=== PATIENT | female | born 1990 | race American Indian/Alaskan Native ===

== ENCOUNTER 2017-05-25 17:00 | Emergency (ER) | payer OTHER ==
[2017-05-25 17:33] VITALS: BP 100/73
--- NOTE | 2017-05-25 19:45 | Emergency Department Report ---
ED General Adult HPI - General Chief complaint: Allergic Reaction Stated complaint: POSSIBLE ALLERGIC REACTION Time Seen by Provider: 05/25/17 19:42 Source: patient Mode of arrival: Ambulatory Limitations: No Limitations - History of Present Illness Initial comments: 26-year-old female past medical history diabetes type 2 on insulin Levemir presents with complaint of sensation of tingling on skin for 2 days with pins and needle sensation. Patient states that she also noticed that she has slight rash on her face. Denies any chest pain palpitations shortness of breath or abdominal pain. Patient states that she was released from [facility] on Monday of this week after being treated for DKA and hyperglycemia. Patient states she is supposed to be taking 28 units of daily at bedtime Levemir and Humalog 8 units with meals. States that she has had uncontrolled blood sugars since Monday. Onset/Timin -: days(s) Location: head Quality: other (tingling sensation) Consistency: constant Improves with: none Worsens with: none Associated Symptoms: other (tinglign on face, slight maculopapular rash onf martine) - Related Data Previous Rx's Medication Instructions Recorded Last Taken Type Famotidine [Pepcid] 20 mg PO BID #6 tablet 05/25/17 Unknown Rx diphenhydrAMINE [Benadryl CAP] 50 mg PO Q6H #12 capsule 05/25/17 Unknown Rx Allergies Allergy/AdvReac Type Severity Reaction Status Date / Time No Known Allergies Allergy Verified 05/25/17 20:38 ED Review of Systems ROS: Stated complaint: POSSIBLE ALLERGIC REACTION Other details as noted in HPI Constitutional: denies: chills, fever Eyes: denies: eye pain, eye discharge, vision change ENT: denies: ear pain, throat pain Respiratory: denies: cough, shortness of breath, wheezing Cardiovascular: denies: chest pain, palpitations Endocrine: no symptoms reported Gastrointestinal: denies: abdominal pain, nausea, diarrhea Genitourinary: denies: urgency, dysuria, discharge Musculoskeletal: denies: back pain, joint swelling, arthralgia Skin: rash (slight facial maculopapular rash). denies: lesions Neurological: paresthesias. denies: headache, weakness Psychiatric: denies: anxiety, depression Hematological/Lymphatic: denies: easy bleeding, easy bruising ED Past Medical Hx - Surgical History Additional Surgical History: c- section x3, tubal ligation - Social History Smoking Status: Never Smoker Substance Use Type: None, Prescribed - Medications Home Medications: Home Medications Medication Instructions Recorded Confirmed Last Taken Type Famotidine [Pepcid] 20 mg PO BID #6 tablet 05/25/17 Unknown Rx diphenhydrAMINE [Benadryl CAP] 50 mg PO Q6H #12 capsule 05/25/17 Unknown Rx ED Physical Exam - General Limitations: No Limitations General appearance: alert, in no apparent distress - Head Head exam: Present: atraumatic, normocephalic - Eye Eye exam: Present: normal appearance, PERRL, EOMI - ENT ENT exam: Present: mucous membranes moist - Neck Neck exam: Present: normal inspection, full ROM - Respiratory Respiratory exam: Present: normal lung sounds bilaterally. Absent: respiratory distress - Cardiovascular Cardiovascular Exam: Present: regular rate, normal rhythm. Absent: systolic murmur, diastolic murmur, rubs, gallop - GI/Abdominal GI/Abdominal exam: Present: soft, normal bowel sounds - Extremities Exam Extremities exam: Present: normal inspection - Back Exam Back exam: Present: normal inspection - Neurological Exam Neurological exam: Present: alert, oriented X3, CN II-XII intact, normal gait - Psychiatric Psychiatric exam: Present: normal affect, normal mood - Skin Skin exam: Present: warm, dry, intact, normal color. Absent: rash - Expanded Skin Exam Expanded Distribution of rash: face Description of rash: Present: macular ED Course Vital Signs 05/25/17 05/25/17 17:17 20:55 Temperature 98.5 F Pulse Rate 86 Respiratory 18 16 Rate Blood Pressure 100/73 O2 Sat by Pulse 100 100 Oximetry ED Medical Decision Making - Lab Data Result diagrams: 05/25/17 19:50 05/25/17 21:00 - Medical Decision Making A/P: Hyperglycemia, hypernatremia 1- discussed case with who also examined the pt 2- pts labs came back significantly abnormal, NA 172, AG 71 3-I immediately informed the pt of my concern, I discussed case with Dr. lucio and group director Rufina, pt uptriaged 4- repeat BMP to verify intial result, pt uptriaged to main ED for attending level of care, I calculated rate of d5w repletion based on formula as per [email or web address] rec's on hypernatremia [id number] 5- UPDATE: as per lab, repeat Na 130s, Dr. Lucio informed me of update and stated he continue to manage pts care and or DC. Critical care attestation.: If time is entered above; I have spent that time in minutes in the direct care of this critically ill patient, excluding procedure time. ED Disposition Clinical Impression: Allergic reaction Qualifiers: Encounter type: initial encounter Qualified Code(s): T78.40XA - Allergy, unspecified, initial encounter Disposition: DC-01 TO HOME OR SELFCARE Is pt being admited?: No Does the pt Need Aspirin: No Condition: Stable Instructions: Allergies (ED) Additional Instructions: Return to the emergency department immediately should you develop worsening symptoms, fever, inability to tolerate food or liquid or any other concerns. Prescriptions: diphenhydrAMINE [Benadryl CAP] 50 mg PO Q6H #12 capsule Famotidine [Pepcid] 20 mg PO BID #6 tablet Referrals: KAYLA BELLO MD [Staff Physician] - [facility] PRIMARY CAREMD [Primary Care Provider] - 3-5 Days
[2017-05-25 20:09] LABS: Basophils % (Auto) 1.4 % (0.0-1.8); Eosinophils % (Auto) 2.3 % (0.0-4.3); Hematocrit 44.1 % (30.3-42.9); Hemoglobin 14.6 gm/dl (10.1-14.3); Mean Corpuscular HGB Conc 33 % (30-34); Mean Corpuscular Hemoglobin 31 pg (28-32); Mean Corpuscular Volume 93 fl (79-97); Platelet Count 162 K/mm3 (140-440); Red Blood Count 4.76 M/mm3 (3.65-5.03); Red Cell Distribution Width 17.5 % (13.2-15.2); White Blood Count 4.9 K/mm3 (4.5-11.0)
[2017-05-25 20:30] LABS: Anion Gap 71 mmol/L; Blood Urea Nitrogen 12 mg/dL (7-17); Calcium 8.9 mg/dL (8.4-10.2); Carbon Dioxide 28 mmol/L (22-30); Chloride 77.4 mmol/L (98-107); Glucose 224 mg/dL (65-100); Potassium 4.6 mmol/L (3.6-5.0)
[2017-05-25 20:35] LABS: Sodium 172 mmol/L (137-145)
[2017-05-25 20:42] LABS: Bacteria,Urine 2+ /HPF (Negative); Bilirubin,Urine NEG (Negative); Blood,Urine NEG (Negative); Ketones,Urine 20 mg/dL (Negative); Leukocyte Esterase,Urine TR (Negative); Mucus,Urine 1+ /HPF; Nitrite,Urine NEG (Negative); Urobilinogen,Urine < 2.0 mg/dL (<2.0)
[2017-05-25] MEDS ORDERED: D5W 1,000 ML IV ONE (20:58)
[2017-05-25] MEDS ORDERED: D5W 1,000 ML IV SCH (21:00)
[2017-05-25] MEDS ORDERED: BENADRYL IV ONE (21:04)
[2017-05-25] MEDS ORDERED: PEPCID IV ONE (21:04)
--- NOTE | 2017-05-25 21:11 | Emergency Department Report ---
HPI - General Chief Complaint: Allergic Reaction Time Seen by Provider: 05/25/17 19:42 - HPI HPI: Room 2 The patient is 26-year-old female presented with a chief complaint of facial itching. The patient states 5 days ago she was admitted at [facility] and diagnosed with diabetes when she was found to be in DKA. Patient was initiated on Levemir/Humalog. The patient states for the past 3 days his skin has been tingling all over and yesterday she developed facial itching associated believes she was allergic to her insulin. Patient denies nausea vomiting or diarrhea. Patient denies any history of fever. Patient has had the normal amount of po intake. Patient admits to frequent urination but it was attributed to hyperglycemia/DKA Location: [see above] Duration: [see above] Quality: Tingling, pruritus Severity: Moderate Modifying factors: [see above] Context: [see above] Mode of transportation: [not driving] ED Past Medical Hx - Past Medical History Hx Diabetes: Yes - Surgical History Additional Surgical History: c- section x3, tubal ligation - Family History Family history: no significant - Social History Smoking Status: Never Smoker Substance Use Type: None, Prescribed - Medications Home Medications: Home Medications Medication Instructions Recorded Confirmed Last Taken Type Famotidine [Pepcid] 20 mg PO BID #6 tablet 05/25/17 Unknown Rx diphenhydrAMINE [Benadryl CAP] 50 mg PO Q6H #12 capsule 05/25/17 Unknown Rx ED Review of Systems ROS: Stated complaint: POSSIBLE ALLERGIC REACTION Other details as noted in HPI Comment: All other systems reviewed and negative Constitutional: denies: chills, fever Eyes: denies: eye pain, eye discharge, vision change ENT: denies: ear pain, throat pain Respiratory: denies: cough, shortness of breath, wheezing Cardiovascular: denies: chest pain, palpitations Endocrine: increased urine Gastrointestinal: denies: abdominal pain, nausea, vomiting, diarrhea Genitourinary: denies: urgency, dysuria, discharge Musculoskeletal: denies: back pain, joint swelling, arthralgia Skin: pruritus Neurological: paresthesias Psychiatric: denies: anxiety, depression Hematological/Lymphatic: denies: easy bleeding, easy bruising Physical Exam - Physical Exam Vital Signs: Vital Signs 05/25/17 05/25/17 17:17 20:55 Temperature 98.5 F Pulse Rate 86 Respiratory 18 16 Rate Blood Pressure 100/73 O2 Sat by Pulse 100 100 Oximetry Physical Exam: GENERAL: The patient is well-developed well-nourished female lying on stretcher not appearing to be in acute distress. [] HEENT: Normocephalic. Atraumatic. Extraocular motions are intact. Patient has moist mucous membranes. NECK: Supple. Trachea midline CHEST/LUNGS: Clear to auscultation. There is no respiratory distress noted. HEART/CARDIOVASCULAR: Regular. There is no tachycardia. There is no gallop rub or murmur. ABDOMEN: Abdomen is soft, nontender. Patient has normal bowel sounds. There is no abdominal distention. SKIN: There is no rash. There is no edema. There is no diaphoresis. NEURO: The patient is awake, alert, and oriented. The patient is cooperative. The patient has normal speech MUSCULOSKELETAL: There is no evidence of acute injury. ED Course Vital Signs 05/25/17 05/25/17 17:17 20:55 Temperature 98.5 F Pulse Rate 86 Respiratory 18 16 Rate Blood Pressure 100/73 O2 Sat by Pulse 100 100 Oximetry ED Medical Decision Making - Lab Data Result diagrams: 05/25/17 19:50 05/25/17 21:00 Laboratory Tests 05/25/17 05/25/17 05/25/17 17:24 19:30 19:50 WBC RBC Hgb Hct MCV MCH MCHC RDW Plt Count Lymph % (Auto) [place] % (Auto) Eos % (Auto) Baso % (Auto) Lymph # [place] # Eos # Baso # Seg Neutrophils % Seg Neutrophils # VBG pH Sodium 172 H* Potassium 4.6 Chloride 77.4 L Carbon Dioxide 28 Anion Gap 71 BUN 12 Creatinine 0.5 L Estimated GFR > 60 BUN/Creatinine Ratio 24.00 Glucose 224 H POC Glucose 230 H Calcium 8.9 Total Bilirubin Direct Bilirubin Indirect Bilirubin AST ALT Alkaline Phosphatase Total Creatine Kinase Troponin T Total Protein Albumin Albumin/Globulin Ratio Urine Color Yellow Urine Turbidity Slightly-cloudy Urine pH 6.0 Ur Specific [place] 1.031 H Urine Protein 30 mg/dl Urine Glucose (UA) >=500 Urine Ketones 20 Urine Blood Neg Urine Nitrite Neg Urine Bilirubin Neg Urine Urobilinogen < 2.0 Ur Leukocyte Esterase Tr Urine WBC (Auto) 14.0 H Urine RBC (Auto) 4.0 U Epithel Cells (Auto) 4.0 Urine Bacteria (Auto) 2+ Urine Mucus 1+ Urine HCG, Qual Negative 05/25/17 05/25/17 05/25/17 19:50 19:50 19:50 WBC 4.9 RBC 4.76 Hgb 14.6 H Hct 44.1 H MCV 93 MCH 31 MCHC 33 RDW 17.5 H Plt Count 162 Lymph % (Auto) 45.5 H [place] % (Auto) 10.1 H Eos % (Auto) 2.3 Baso % (Auto) 1.4 Lymph # 2.2 [place] # 0.5 Eos # 0.1 Baso # 0.1 Seg Neutrophils % 40.7 Seg Neutrophils # 2.0 VBG pH 7.392 Sodium Potassium Chloride Carbon Dioxide Anion Gap BUN Creatinine Estimated GFR BUN/Creatinine Ratio Glucose POC Glucose Calcium Total Bilirubin 0.50 Direct Bilirubin < 0.2 Indirect Bilirubin 0.3 AST 132 H ALT 71 H Alkaline Phosphatase 107 Total Creatine Kinase 392 H Troponin T < 0.010 Total Protein 6.0 L Albumin 3.7 L Albumin/Globulin Ratio 1.6 Urine Color Urine Turbidity Urine pH Ur Specific [place] Urine Protein Urine Glucose (UA) Urine Ketones Urine Blood Urine Nitrite Urine Bilirubin Urine Urobilinogen Ur Leukocyte Esterase Urine WBC (Auto) Urine RBC (Auto) U Epithel Cells (Auto) Urine Bacteria (Auto) Urine Mucus Urine HCG, Qual 05/25/17 21:00 WBC RBC Hgb Hct MCV MCH MCHC RDW Plt Count Lymph % (Auto) [place] % (Auto) Eos % (Auto) Baso % (Auto) Lymph # [place] # Eos # Baso # Seg Neutrophils % Seg Neutrophils # VBG pH Sodium 139 D Potassium Chloride Carbon Dioxide Anion Gap BUN Creatinine Estimated GFR BUN/Creatinine Ratio Glucose POC Glucose Calcium Total Bilirubin Direct Bilirubin Indirect Bilirubin AST ALT Alkaline Phosphatase Total Creatine Kinase Troponin T Total Protein Albumin Albumin/Globulin Ratio Urine Color Urine Turbidity Urine pH Ur Specific [place] Urine Protein Urine Glucose (UA) Urine Ketones Urine Blood Urine Nitrite Urine Bilirubin Urine Urobilinogen Ur Leukocyte Esterase Urine WBC (Auto) Urine RBC (Auto) U Epithel Cells (Auto) Urine Bacteria (Auto) Urine Mucus Urine HCG, Qual - EKG Data -: EKG Interpreted by Wy EKG shows normal: sinus rhythm Rate: normal - EKG Data When compared to previous EKG there are: previous EKG unavailable - Differential Diagnosis allergic reaction, hypernatremia Critical care attestation.: If time is entered above; I have spent that time in minutes in the direct care of this critically ill patient, excluding procedure time. ED Disposition Clinical Impression: Allergic reaction Disposition: DC-01 TO HOME OR SELFCARE Is pt being admited?: No Does the pt Need Aspirin: No Condition: Stable Instructions: Allergies (ED) Additional Instructions: Return to the emergency department immediately should you develop worsening symptoms, fever, inability to tolerate food or liquid or any other concerns. Prescriptions: diphenhydrAMINE [Benadryl CAP] 50 mg PO Q6H #12 capsule Famotidine [Pepcid] 20 mg PO BID #6 tablet Referrals: PRIMARY CAREMD [Primary Care Provider] - 3-5 Days KAYLA BELLO MD [Staff Physician] - [facility] Time of Disposition: 21:44 (patient states she is just ready to go home)
[2017-05-25 21:18] LABS: Alanine Aminotransferase 71 units/L (7-56); Albumin 3.7 g/dL (3.9-5); Albumin/Globulin Ratio 1.6 %; Alkaline Phosphatase 107 units/L (35-129); Creatine Kinase 392 units/L (30-135)
[2017-05-25 21:20] LABS: Bilirubin,Direct < 0.2 mg/dL (0-0.2); Bilirubin,Indirect 0.3 mg/dL
== END 2017-05-25 22:00 | disposition home or self-care (01) ==
LOC: ED 17:00
DX: T38.3X5A Adverse effect of insulin and oral hypoglycemic [antidiabetic] drugs, initial encounter (principal); E11.9 Type 2 diabetes mellitus without complications; X58.XXXA Exposure to other specified factors, initial encounter
CPT/HCPCS: 36415; 80048; 80074; 81001; 81025; 82550; 82805; 82962; 84295; 84484; 85025; 87086; 93005; 93010; 96361; 96374; 96375; 99283; J1200; J7070